=== PATIENT | female | born 1970 | race Caucasian/White ===

== ENCOUNTER 2016-05-08 16:16 | Inpatient (IN) | payer MEDICAID, OTHER ==
[2016-05-08] MEDS ORDERED: HYDROmorphone 1 MG/ML Syringe IVPUSH ONE (16:48)
[2016-05-08] MEDS ORDERED: Sodium Chloride 0.9% 10 ML Syringe FLUSH PRN (16:48)
[2016-05-08] MEDS ORDERED: Ondansetron 4 MG/2 ML SDV IVPUSH ONE (16:49)
--- NOTE | 2016-05-08 16:50 | EDM.PDOC ---
ED HPI GI/ABDOMINAL - General Chief Complaint: Abdominal Pain Stated Complaint: LOWER RT SIDE ABD PAIN Time Seen by Provider: 05/08/16 16:42 Source: Reports: Patient History Limitations: Reports: No limitations - History of Present Illness INITIAL COMMENTS - FREE TEXT/NARRATIVE: This lady complains of right lower quadrant abdominal pain which started last night. It's gotten progressively worse throughout the day. Any kind of movement hurts her. She vomited last night but hasn't vomited today. She hasn' t had anything to eat today she drank a little bit of water several hours ago. It hurts to move her left leg. She denies any dysuria she denies any chance of . - Related Data Allergies/ADRs: Allergies Allergy/AdvReac Type Severity Reaction Status Date / Time No Known Allergies Allergy Verified 05/08/16 16:40 Home Meds: Home Meds Aspirin 81 mg PO DAILY 05/08/16 [History] Ibuprofen [Advil] 600 mg PO ASDIRECTED PRN 05/08/16 [History] Past Medical History - Past Health History Medical/Surgical History: Denies Medical/Surgical History - Infectious Disease History Infectious Disease History: Reports: Chicken pox Social & Family History - Tobacco Use Smoking Status *Q: Former Smoker Tobacco Use Comment: using e cig. right now quit about a month ago - Caffeine Use Caffeine Use: Reports: Soda - Recreational Drug Use Recreational Drug Use: No ED ROS GENERAL - Review of Systems Review Of Systems: ROS reveals no pertinent complaints other than HPI. ED EXAM, GI/ABD - Physical Exam Exam: See Below Exam Limited By: No limitations General Appearance: alert, WD/WN, moderate distress Eyes: bilateral: normal appearance Ears: normal external exam Nose: normal inspection Throat/Mouth: Normal inspection Head: atraumatic Respiratory/Chest: lungs clear Cardiovascular: regular rate, rhythm, no murmur GI/Abdominal: soft, absent bowel sounds, tenderness (Severe right lower quadrant tenderness), rebound (Rebound to light percussion) Extremities: normal inspection Neurological: alert Psychiatric: normal affect Skin Exam: Warm Course - Vital Signs Last Recorded V/S: Last Vital Signs Temp 37.7 C 05/08/16 17:19 Pulse 115 H 05/08/16 16:36 Resp 16 05/08/16 16:36 BP 137/89 05/08/16 17:17 Pulse Ox 95 05/08/16 16:36 - Orders/Labs/Meds Orders: Active Orders 24 hr Category Date Time Status Abdomen Pelvis w Cont [CT] Stat Exams 05/08/16 16:49 Taken UA W/MICROSCOPIC [URIN] Urgent Lab 05/08/16 17:35 Ordered Iopamidol [Isovue-300 (61%)] Med 05/08/16 17:00 Active 100 ml IV . DIRECTED Sodium Chloride 0.9% [Normal Saline] 100 ml Med 05/08/16 17:00 Active IV ASDIRECTED Sodium Chloride 0.9% [Saline Flush] Med 05/08/16 16:48 Active 10 ml FLUSH ASDIRECTED PRN Saline Lock Insert [OM.PC] Urgent Oth 05/08/16 16:48 Ordered Medication Orders Sodium Chloride (Normal Saline) 100 mls @ 3 mls/sec IV ASDIRECTED [facility] Last Admin: 05/08/16 17:25 Dose: 3 mls/sec Iopamidol (Isovue-300 (61%)) 100 ml IV . DIRECTED [facility] Last Admin: 05/08/16 17:25 Dose: 100 ml Sodium Chloride (Saline Flush) 10 ml FLUSH ASDIRECTED PRN PRN Reason: Keep Vein Open Last Admin: 05/08/16 17:25 Dose: 10 ml Labs: Laboratory Tests 05/08/16 05/08/16 Range/Units 16:47 16:47 WBC 17.2 H (4.5-11.0) K/uL RBC 4.14 (3.30-5.50) M/uL Hgb 13.6 (12.0-15.0) g/dL Hct 39.7 (36.0-48.0) % MCV 96 (80-98) fL MCH 33 H (27-31) pg MCHC 34 (32-36) % Plt Count 227 (150-400) K/uL Neut % (Auto) 85 H (36-66) % Lymph % (Auto) 7 L (24-44) % [place]ickman % (Auto) 7 H (2-6) % Eos % (Auto) 1 L (2-4) % Baso % (Auto) 0 (0-1) % Sodium 137 L (140-148) mmol/L Potassium 3.7 (3.6-5.2) mmol/L Chloride 100 (100-108) mmol/L Carbon Dioxide 25 (21-32) mmol/L Anion Gap 15.7 H (5.0-14.0) mmol/L BUN 10 (7-18) mg/dL Creatinine 0.8 (0.6-1.0) mg/dL Est Cr Clr Drug Dosing 75.07 mL/min Estimated GFR (MDRD) > 60 (>60) Glucose 109 H (74-106) mg/dL Calcium 9.4 (8.5-10.1) mg/dL Total Bilirubin 1.1 H (0.2-1.0) mg/dL AST 13 L (15-37) U/L ALT 35 (12-78) U/L Alkaline Phosphatase 64 (46-116) U/L Total Protein 7.6 (6.4-8.2) g/dL Albumin 4.2 (3.4-5.0) g/dL Globulin 3.4 (2.3-3.5) g/dL Albumin/Globulin Ratio 1.2 (1.2-2.2) Meds: Medications Generic Name Dose Route Start Last Admin Trade Name Freq PRN Reason Stop Dose Admin Sodium Chloride 100 mls @ 3 mls/sec 05/08/16 17:00 05/08/16 17:25 Normal Saline IV 3 mls/sec ASDIRECTED [facility] Administration Iopamidol 100 ml 05/08/16 17:00 05/08/16 17:25 Isovue-300 (61%) IV 100 ml . DIRECTED [facility] Administration Sodium Chloride 10 ml 05/08/16 16:48 05/08/16 17:25 Saline Flush FLUSH 10 ml ASDIRECTED PRN Administration Keep Vein Open Discontinued Medications Generic Name Dose Route Start Last Admin Trade Name Freq PRN Reason Stop Dose Admin Hydromorphone HCl 1 mg 05/08/16 16:48 05/08/16 17:07 Dilaudid IVPUSH 05/08/16 16:49 1 mg ONETIME ONE Administration Ondansetron HCl 4 mg 05/08/16 16:49 05/08/16 17:11 Zofran IVPUSH 05/08/16 16:50 4 mg ONETIME ONE Administration - Radiology Interpretation Free Text/Narrative:: CT scan shows a lot of stranding in the right lower quadrant and a bleed I can see an enlarged appendix. The radiologist interpretation is pending - Re-Assessments/Exams Free Text/Narrative Re-Assessment/Exam: 05/08/16 17:44 I spoke with and he will be in to see the patient shortly Departure - Departure Time of Disposition: 17:45 Disposition: Admitted As Inpatient 64 Clinical Impression: Acute appendicitis Forms: ED Department Discharge - My Orders Last 24 Hours: My Active Orders 05/08/16 16:48 Sodium Chloride 0.9% [Saline Flush] 10 ml FLUSH ASDIRECTED PRN Saline Lock Insert [OM.PC] Urgent 05/08/16 16:49 Abdomen Pelvis w Cont [CT] Stat 05/08/16 17:00 Iopamidol [Isovue-300 (61%)] 100 ml IV . DIRECTED Sodium Chloride 0.9% [Normal Saline] 100 ml IV ASDIRECTED 05/08/16 17:35 UA W/MICROSCOPIC [URIN] Urgent - Assessment/Plan Last 24 Hours: My Active Orders 05/08/16 16:48 Sodium Chloride 0.9% [Saline Flush] 10 ml FLUSH ASDIRECTED PRN Saline Lock Insert [OM.PC] Urgent 05/08/16 16:49 Abdomen Pelvis w Cont [CT] Stat 05/08/16 17:00 Iopamidol [Isovue-300 (61%)] 100 ml IV . DIRECTED Sodium Chloride 0.9% [Normal Saline] 100 ml IV ASDIRECTED 05/08/16 17:35 UA W/MICROSCOPIC [URIN] Urgent
[2016-05-08] MEDS ORDERED: Iopamidol 612 MG/ML 100 ML Bottle IV SCH (17:00)
[2016-05-08] MEDS ORDERED: Sodium Chloride 0.9% 100 ML IV SCH (17:00)
[2016-05-08] MEDS ORDERED: Lidocaine 1% with EPINEPHrine 1:100,000 50 ML MDV ONE (17:59)
[2016-05-08] MEDS ORDERED: Bupivacaine 0.5% 50 ML MDV ONE (17:59)
[2016-05-08] MEDS ORDERED: HYDROmorphone 0.5 MG/0.5 ML Syringe IVPUSH ONE (18:15)
[2016-05-08] MEDS ORDERED: Lactated Ringers 1,000 ML IV ONE (18:45)
[2016-05-08] MEDS ORDERED: cefOXitin 2 GM in Sodium Chloride 0.9% 50 ML IV ONE (18:45)
[2016-05-08] MEDS ORDERED: fentaNYL 250 MCG/5 ML SDV ONE ×2 (20:10→20:39)
[2016-05-08] MEDS ORDERED: Neostigmine Methylsulfate 1 MG/ML 5 ML Syringe ONE (20:11)
[2016-05-08] MEDS ORDERED: Ondansetron 4 MG/2 ML SDV ONE (20:11)
[2016-05-08] MEDS ORDERED: Rocuronium 50 MG/5 ML Vial ONE (20:11)
[2016-05-08] MEDS ORDERED: Dexamethasone 4 MG/ML SDV ONE (20:11)
[2016-05-08] MEDS ORDERED: Propofol 200 MG/20 ML SDV ONE (20:11)
[2016-05-08] MEDS ORDERED: Lactated Ringers 1,000 ML IV SCH (20:45)
[2016-05-08] MEDS ORDERED: Ondansetron 4 MG/2 ML SDV IVPUSH PRN (21:45)
[2016-05-08] MEDS ORDERED: D5 1/2 NS w/ 20 mEq/L KCl 1,000 ML IV SCH (22:00)
[2016-05-08] MEDS ORDERED: Naloxone 0.4 MG/ML SDV IV PRN (22:16)
[2016-05-08] MEDS: HYDROmorphone/Normal Saline 15 MG/30 ML PCA IV PRN (22:29)
[2016-05-09] MEDS ORDERED: cefOXitin 2 GM Vial ONE (04:09)
[2016-05-09] MEDS ORDERED: Sodium Chloride 0.9% 50 ML ONE (04:10)
[2016-05-09] MEDS: cefOXitin 2 GM in Sodium Chloride 0.9% 50 ML IV SCH ×2 (04:20→05:35)
[2016-05-09] MEDS ORDERED: D5 1/2 NS w/ 20 mEq/L KCl 1,000 ML IV SCH (06:30)
--- NOTE | 2016-05-09 06:33 | PCM.SURGPN ---
- General Info Date of Service: 05/09/16 Date of Surgery/Procedure: 05/08/16 POD#: 1 Post-Op Diagnosis: Appendicitis Admission Diagnosis/Problem: Appendicitis Functional Status: Reports: pain controlled, ambulating, urinating (Not is record, but she has voided several times last night. ) - Review of Systems General: Reports: No Symptoms, Other (She feels much better than she did prior to surgery. ) HEENT: Reports: sore throat (From endotracheal tube. ) Pulmonary: Reports: no symptoms Cardiovascular: Reports: No Symptoms Gastrointestinal: Reports: No symptoms, Other (She is not hungry, but is thirsty. ). Denies: Vomiting Genitourinary: Reports: no symptoms Musculoskeletal: Reports: no symptoms Skin: Reports: no symptoms Neurological: Reports: No Symptoms Psychiatric: Reports: no symptoms - Patient Data Vitals - most recent: Last Vital Signs Temp 99.8 F 05/09/16 02:54 Pulse 102 H 05/09/16 02:54 Resp 16 05/09/16 02:54 BP 108/74 05/09/16 02:54 Pulse Ox 92 L 05/09/16 02:54 Weight - most recent: 133 lb I&O - last 24 hours: Intake & Output 05/08/16 05/08/16 05/09/16 14:59 22:59 06:59 Intake Total 876 Balance 876 Lab Results last 24 hrs: Laboratory Results - last 24 hr 05/09/16 05/09/16 Range/Units 05:00 05:00 WBC 17.2 H (4.5-11.0) K/uL RBC 3.75 (3.30-5.50) M/uL Hgb 11.9 L (12.0-15.0) g/dL Hct 37.1 (36.0-48.0) % MCV 99 H (80-98) fL MCH 32 H (27-31) pg MCHC 32 (32-36) % Plt Count 229 (150-400) K/uL Sodium 139 L (140-148) mmol/L Potassium 4.6 (3.6-5.2) mmol/L Chloride 104 (100-108) mmol/L Carbon Dioxide 28 (21-32) mmol/L Anion Gap 11.6 (5.0-14.0) mmol/L BUN 6 L (7-18) mg/dL Creatinine 1.2 H (0.6-1.0) mg/dL Est Cr Clr Drug Dosing 50.05 mL/min Estimated GFR (MDRD) 48 L (>60) Glucose 147 H (74-106) mg/dL Calcium 8.8 (8.5-10.1) mg/dL [place] Results last 24 hrs: Microbiology 05/08/16 22:19 Gram Stain - Final Peritoneal Fluid Med Orders - Current: Current Medications Hydromorphone HCl (Dilaudid [employer]ump Truck Driver [address] Mg In Ns 30 Ml) 0 mg IV ASDIRECTED PRN; Protocol PRN Reason: 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 TENDER 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 Last Admin: 05/08/16 22:29 Dose: 15 mg Sodium Chloride (Normal Saline) 100 mls @ 3 mls/sec IV ASDIRECTED [facility] Last Admin: 05/08/16 17:25 Dose: 3 mls/sec Lactated Ringer's (Ringers, Lactated) 1,000 mls @ 100 mls/hr IV ASDIRECTED [facility] Potassium Chloride/Dextrose/Sod Cl (D5 1/2 Ns W/ 20 Meq/L Kcl) 1,000 mls @ 125 mls/hr IV ASDIRECTED [facility] Last Admin: 05/08/16 22:33 Dose: 125 mls/hr Cefoxitin Sodium 2 gm/ Sodium (Chloride) 50 mls @ 100 mls/hr IV Q8HR [facility] Stop: 05/09/16 06:29 Last Admin: 05/09/16 05:35 Dose: Not Given Iopamidol (Isovue-300 (61%)) 100 ml IV . DIRECTED [facility] Last Admin: 05/08/16 17:25 Dose: 100 ml Naloxone HCl (Narcan) 0.1 mg IV ASDIRECTED PRN PRN Reason: decreased respiratory rate Ondansetron HCl (Zofran) 4 mg IVPUSH Q6H PRN PRN Reason: Nausea/Vomiting Sodium Chloride (Saline Flush) 10 ml FLUSH ASDIRECTED PRN PRN Reason: Keep Vein Open Last Admin: 05/08/16 17:25 Dose: 10 ml Discontinued Medications Bupivacaine HCl (Marcaine 0.5%) Confirm Administered Dose 50 ml .ROUTE .STK-MED ONE Stop: 05/08/16 18:00 Last Admin: 05/08/16 20:46 Dose: 10 ml Cefoxitin Sodium (Mefoxin) Confirm Administered Dose 2 gm .ROUTE .STK-MED ONE Stop: 05/09/16 04:10 Last Admin: 05/09/16 04:19 Dose: 2 gm Dexamethasone (Dexamethasone) Confirm Administered Dose 4 mg .ROUTE .STK-MED ONE Stop: 05/08/16 20:12 Fentanyl (Sublimaze) Confirm Administered Dose 250 mcg .ROUTE .STK-MED ONE Stop: 05/08/16 20:11 Fentanyl (Sublimaze) Confirm Administered Dose 250 mcg .ROUTE .STK-MED ONE Stop: 05/08/16 20:40 Glycopyrrolate () Confirm Administered Dose 1 mg .ROUTE .STK-MED ONE Stop: 05/08/16 20:12 Hydromorphone HCl (Dilaudid) 1 mg IVPUSH ONETIME ONE Stop: 05/08/16 16:49 Last Admin: 05/08/16 17:07 Dose: 1 mg Hydromorphone HCl (Dilaudid) 0.5 mg IVPUSH ONETIME ONE Stop: 05/08/16 18:16 Last Admin: 05/08/16 18:28 Dose: 0.5 mg Cefoxitin Sodium 2 gm/ Sodium (Chloride) 50 mls @ 100 mls/hr IV ONCALL ONE Stop: 05/08/16 19:14 Last Admin: 05/08/16 19:02 Dose: 100 mls/hr Lactated Ringer's (Ringers, Lactated) 1,000 mls @ 500 mls/hr IV ONETIME ONE Stop: 05/08/16 20:44 Last Admin: 05/08/16 18:54 Dose: 500 mls/hr Sodium Chloride (Normal Saline) Confirm Administered Dose 50 mls @ as directed .ROUTE .STK-MED ONE Stop: 05/09/16 04:11 Last Admin: 05/09/16 04:19 Dose: 50 ml Lidocaine/Epinephrine (Xylocaine 1% With Epinephrine 1:100,000) Confirm Administered Dose 50 ml .ROUTE .STK-MED ONE Stop: 05/08/16 18:00 Last Admin: 05/08/16 20:47 Dose: 10 ml Neostigmine Methylsulfate (Neostigmine) Confirm Administered Dose 5 mg .ROUTE .STK-MED ONE Stop: 05/08/16 20:12 Ondansetron HCl (Zofran) 4 mg IVPUSH ONETIME ONE Stop: 05/08/16 16:50 Last Admin: 05/08/16 17:11 Dose: 4 mg Ondansetron HCl (Zofran) Confirm Administered Dose 4 mg .ROUTE .STK-MED ONE Stop: 05/08/16 20:12 Propofol (Diprivan 20 Ml) Confirm Administered Dose 200 mg .ROUTE .STK-MED ONE Stop: 05/08/16 20:12 Rocuronium [place] (Zemuron) Confirm Administered Dose 50 mg .ROUTE .STK-MED ONE Stop: 05/08/16 20:12 - Exam Wound/Incisions: healing well, no drainage Quality Assessment: supplemental oxygen General: alert, oriented Lungs: Clear to auscultation, Normal respiratory effort Cardiovascular: Regular Rate, Regular Rhythm Abdomen: bowel sounds present, soft, no tenderness, no distension Extremities: no edema Skin: warm, dry, intact Neurological: no new focal deficit Psy/Mental Status: alert, normal affect, normal mood - Problem List & Annotations (1) Acute appendicitis SNOMED Code(s): 93854966 Code(s): K35.80 - UNSPECIFIED ACUTE APPENDICITIS Status: Acute Current Visit: Yes - Problem List Review Problem List Initiated/Reviewed/Updated: Yes - My Orders Last 24 Hours: Active Orders 24 hr Category Date Time Status Advance Diet Instructions [DIET] Diet 05/09/16 Breakfast Ordered D5 1/2 NS w/ 20 mEq/L KCl 1,000 ml Med 05/08/16 22:00 Active IV ASDIRECTED D5 1/2 NS w/ 20 mEq/L KCl 1,000 ml Med 05/09/16 06:30 Ordered IV ASDIRECTED HYDROmorphone/Normal Saline [Dilaudid CLOTH 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 TENDER 15 MG in NS Med 05/08/16 22:16 Active 30 ML] 0 mg IV ASDIRECTED PRN Naloxone [Narcan] Med 05/08/16 22:16 Active 0.1 mg IV ASDIRECTED PRN Medication Orders Hydromorphone HCl (Dilaudid Dump Truck Driver [address] Mg In Ns 30 Ml) 0 mg IV ASDIRECTED PRN; Protocol PRN Reason: CLOTH 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 TENDER PAIN CONTROL Last Admin: 05/08/16 22:29 Dose: 15 mg Sodium Chloride (Normal Saline) 100 mls @ 3 mls/sec IV ASDIRECTED [facility] Last Admin: 05/08/16 17:25 Dose: 3 mls/sec Lactated Ringer's (Ringers, Lactated) 1,000 mls @ 100 mls/hr IV ASDIRECTED [facility] Potassium Chloride/Dextrose/Sod Cl (D5 1/2 Ns W/ 20 Meq/L Kcl) 1,000 mls @ 125 mls/hr IV ASDIRECTED [facility] Last Admin: 05/08/16 22:33 Dose: 125 mls/hr Cefoxitin Sodium 2 gm/ Sodium (Chloride) 50 mls @ 100 mls/hr IV Q8HR [facility] Stop: 05/09/16 06:29 Last Admin: 05/09/16 05:35 Dose: Not Given Admin: 05/09/16 04:20 Dose: Not Given Iopamidol (Isovue-300 (61%)) 100 ml IV . DIRECTED [facility] Last Admin: 05/08/16 17:25 Dose: 100 ml Naloxone HCl (Narcan) 0.1 mg IV ASDIRECTED PRN PRN Reason: decreased respiratory rate Ondansetron HCl (Zofran) 4 mg IVPUSH Q6H PRN PRN Reason: Nausea/Vomiting Sodium Chloride (Saline Flush) 10 ml FLUSH ASDIRECTED PRN PRN Reason: Keep Vein Open Last Admin: 05/08/16 17:25 Dose: 10 ml - Assessment Assessment (Free Text/Narrative):: She appears well. Fever has resolved. WBC still up. - Plan Plan (Free Text/Narrative):: Feed. Decrease fluids.
--- NOTE | 2016-05-09 07:22 | OR ---
DATE OF PROCEDURE: 05/08/2016 PREOPERATIVE DIAGNOSIS: Acute appendicitis. POSTOPERATIVE DIAGNOSIS: Acute appendicitis, possible micro perforation, possible gangrenous. PROCEDURE: Laparoscopic appendectomy. ANESTHESIA: General endotracheal. INDICATION: This 45-year-old white female noted onset of abdominal bloating yesterday. This got worse and then developed into diffuse abdominal pain which ultimately moved to her right lower quadrant. The pain was followed by nausea and vomiting. She finally came in this afternoon to the emergency room where she was found to be tender in the right lower quadrant. She had a fever over 101 and a WBC of 17,200. A CAT scan of abdomen and pelvis was consistent with acute appendicitis. No obvious evidence of perforation. She was taken to the operating room for a laparoscopic appendectomy. I counseled her for surgery including risks and alternatives, and she gave her informed consent to proceed. DESCRIPTION OF PROCEDURE: After adequate general endotracheal anesthesia was obtained, a Dubose catheter was placed. Her abdomen was prepped and draped in the usual sterile fashion. The leg compression stockings were in place and used during the entire procedure. Time-out was held. An infraumbilical semicircular incision was made. Under direct vision, a 12-mm port was introduced into the abdomen using the Optiview technique. The camera was introduced into the abdomen. No evidence of intraabdominal injury was seen. Under direct vision, 12 mm ports were placed in the right upper and left lower quadrants. There was some murky fluid in the abdomen which was aspirated free and sent for Gram stain and culture. The appendix was identified and was noted to be fused to the posterior peritoneal wall. We sharply freed this up. At one point, we entered the appendiceal artery which was controlled with clips. We were able to mobilize the appendix up and divide it right at the cecum with a KATYA blue load. The mesoappendix was then divided with the endoscopic KATYA using a white load. The appendix was placed in a sample retrieval bag and elevated up through the anterior abdominal wall via the right upper quadrant port site. The mesoappendix appeared nonviable, so this was removed using another white load to excise this. This was also sent to the laboratory. The right lower quadrant was irrigated and suctioned dry, all looked well. The fascia closure device was used to place 0 Vicryl stitches in the right upper and left lower quadrant fascial defects. The stitches were not tied down until they were both placed and they were then tied down. Next, the infraumbilical port was removed. An interrupted stitch of 0 Vicryl was used to close this fascial defect. Before tying this stitch down, we evacuated as much CO2 as we could from the abdomen. The incisions were then anesthetized with lidocaine with epinephrine in a 50:50 mix with 0.5% Marcaine. All skin incisions were then closed with subcuticular stitches of 4-0 Vicryl. Dermabond was applied and an abdominal binder. The anesthesia was reversed. She was extubated and brought to recovery room in good condition. Leon Marc MD /[id number] MTDD
[2016-05-09 07:40] VITALS: BP 109/71
[2016-05-09] MEDS: HYDROmorphone/Normal Saline 15 MG/30 ML PCA IV PRN (09:53)
[2016-05-09] MEDS ORDERED: cefOXitin 2 GM in Sodium Chloride 0.9% 50 ML IV SCH (12:00)
[2016-05-09] MEDS ORDERED: Acetaminophen/HYDROcodone 325-5 MG Tab PO PRN (12:31)
--- NOTE | 2016-05-09 19:30 | PCM.DCSUM1 ---
Discharge Summary - Hospital Course Free Text/Narrative:: This 45 year old white female presented to the ER yesterday complaining of a day of progressive abdominal symptoms. She began with bloating followed by diffuse abdominal pain which moved to her right lower quadrant followed by nausea and vomiting. She had a temperature of 101.6, was tender in the right lower quadrant with peritoneal irritation signs, and an elevated WBC of 17,200. A CT of her abdomen and pelvis showed acute appendicitis. She received Mefoxin 2 grams IV and was taken to the OR for a laparoscopic appendectomy. There was no obvious perforation, but areas of the appendix appeared necrotic. Her fever rapidly resolved and she was able to eat today. She wanted to go home. Gram stain of peritoneal fluid showed no bacteria. Urinalysis was consistent with a UTI, so she was given Keflex 500 BID for three days. HPI Initial Comments: See above narrative. Brief History: See above narrative. - Discharge Data Discharge Date: 05/09/16 Discharge Disposition: Home, Self-Care 01 Condition: Good - Discharge Diagnosis/Problem(s) (1) Acute appendicitis SNOMED Code(s): 69570068 ICD Code: K35.80 - UNSPECIFIED ACUTE APPENDICITIS Status: Acute - Patient Summary/Data Operative Procedure(s) Performed: Laparoscopic appendectomy Hospital Course: See above narrative. - Patient Instructions Diet: Usual Diet as Tolerated Activity, Other: Avoid activity that causes discomfort. Showering/Bathing: May Shower Notify Provider of: Fever, Increased Pain, Swelling and Redness, Drainage, Nausea and/or Vomiting - Discharge Plan Home Medications: Home Meds Aspirin 81 mg PO DAILY 05/08/16 [History] Ibuprofen [Advil] 600 mg PO ASDIRECTED PRN 05/08/16 [History] Referrals: PCP,None [Primary Care Provider] - Leon Marc MD [Physician] - (Next week with me in [facility]. ) - Discharge Summary/Plan Comment DC Time >30 min.: Yes Discharge Summary/Plan Comment: See above narrative. - Patient Data Vitals - Most Recent: Last Vital Signs Temp 98.8 F 05/09/16 12:27 Pulse 78 05/09/16 07:39 Resp 16 05/09/16 07:39 BP 109/71 05/09/16 07:39 Pulse Ox 100 05/09/16 07:39 Weight - Most Recent: 133 lb 0.007 oz I&O - Last 24 hours: Intake & Output 05/09/16 05/09/16 05/09/16 06:59 14:59 22:59 Intake Total 876 1300 Output Total 700 Balance 176 1300 Lab Results - Last 24 hrs: Laboratory Results - last 24 hr 05/09/16 05/09/16 Range/Units 05:00 05:00 WBC 17.2 H (4.5-11.0) K/uL RBC 3.75 (3.30-5.50) M/uL Hgb 11.9 L (12.0-15.0) g/dL Hct 37.1 (36.0-48.0) % MCV 99 H (80-98) fL MCH 32 H (27-31) pg MCHC 32 (32-36) % Plt Count 229 (150-400) K/uL Sodium 139 L (140-148) mmol/L Potassium 4.6 (3.6-5.2) mmol/L Chloride 104 (100-108) mmol/L Carbon Dioxide 28 (21-32) mmol/L Anion Gap 11.6 (5.0-14.0) mmol/L BUN 6 L (7-18) mg/dL Creatinine 1.2 H (0.6-1.0) mg/dL Est Cr Clr Drug Dosing 50.05 mL/min Estimated GFR (MDRD) 48 L (>60) Glucose 147 H (74-106) mg/dL Calcium 8.8 (8.5-10.1) mg/dL [place] Results - Last 24 hrs: Microbiology 05/08/16 22:19 Gram Stain - Final Peritoneal Fluid Med Orders - Current: Current Medications Discontinued Medications Acetaminophen/Hydrocodone Bitart ([place]pex 325-5 Mg) 1 - 2 tab PO Q4H PRN PRN Reason: Pain Last Admin: 05/09/16 12:48 Dose: 2 tab Bupivacaine HCl (Marcaine 0.5%) Confirm Administered Dose 50 ml .ROUTE .STK-MED ONE Stop: 05/08/16 18:00 Last Admin: 05/08/16 20:46 Dose: 10 ml Cefoxitin Sodium (Mefoxin) Confirm Administered Dose 2 gm .ROUTE .STK-MED ONE Stop: 05/09/16 04:10 Last Admin: 05/09/16 04:19 Dose: 2 gm Dexamethasone (Dexamethasone) Confirm Administered Dose 4 mg .ROUTE .STK-MED ONE Stop: 05/08/16 20:12 Fentanyl (Sublimaze) Confirm Administered Dose 250 mcg .ROUTE .STK-MED ONE Stop: 05/08/16 20:11 Fentanyl (Sublimaze) Confirm Administered Dose 250 mcg .ROUTE .STK-MED ONE Stop: 05/08/16 20:40 Glycopyrrolate () Confirm Administered Dose 1 mg .ROUTE .STK-MED ONE Stop: 05/08/16 20:12 Hydromorphone HCl (Dilaudid) 1 mg IVPUSH ONETIME ONE Stop: 05/08/16 16:49 Last Admin: 05/08/16 17:07 Dose: 1 mg Hydromorphone HCl (Dilaudid) 0.5 mg IVPUSH ONETIME ONE Stop: 05/08/16 18:16 Last Admin: 05/08/16 18:28 Dose: 0.5 mg Hydromorphone HCl (Dilaudid Production Line Mechanic 15 Mg In Ns 30 Ml) 0 mg IV ASDIRECTED PRN; Protocol PRN Reason: RETINAL ANGIOGRAPHER PAIN CONTROL Last Admin: 05/09/16 09:53 Dose: 15 mg Sodium Chloride (Normal Saline) 100 mls @ 3 mls/sec IV ASDIRECTED [facility] Last Admin: 05/08/16 17:25 Dose: 3 mls/sec Cefoxitin Sodium 2 gm/ Sodium (Chloride) 50 mls @ 100 mls/hr IV ONCALL ONE Stop: 05/08/16 19:14 Last Admin: 05/08/16 19:02 Dose: 100 mls/hr Lactated Ringer's (Ringers, Lactated) 1,000 mls @ 500 mls/hr IV ONETIME ONE Stop: 05/08/16 20:44 Last Admin: 05/08/16 18:54 Dose: 500 mls/hr Lactated Ringer's (Ringers, Lactated) 1,000 mls @ 100 mls/hr IV ASDIRECTED [facility] Potassium Chloride/Dextrose/Sod Cl (D5 1/2 Ns W/ 20 Meq/L Kcl) 1,000 mls @ 125 mls/hr IV ASDIRECTED [facility] Last Admin: 05/08/16 22:33 Dose: 125 mls/hr Cefoxitin Sodium 2 gm/ Sodium (Chloride) 50 mls @ 100 mls/hr IV Q8HR [facility] Stop: 05/09/16 06:29 Last Admin: 05/09/16 05:35 Dose: Not Given Sodium Chloride (Normal Saline) Confirm Administered Dose 50 mls @ as directed .ROUTE .STK-MED ONE Stop: 05/09/16 04:11 Last Admin: 05/09/16 04:19 Dose: 50 ml Potassium Chloride/Dextrose/Sod Cl (D5 1/2 Ns W/ 20 Meq/L Kcl) 1,000 mls @ 50 mls/hr IV ASDIRECTED [facility] Last Admin: 05/09/16 09:55 Dose: 50 mls/hr Cefoxitin Sodium 2 gm/ Sodium (Chloride) 50 mls @ 100 mls/hr IV Q8H [facility] Stop: 05/09/16 12:29 Last Admin: 05/09/16 12:08 Dose: 100 mls/hr Iopamidol (Isovue-300 (61%)) 100 ml IV . DIRECTED [facility] Last Admin: 05/08/16 17:25 Dose: 100 ml Lidocaine/Epinephrine (Xylocaine 1% With Epinephrine 1:100,000) Confirm Administered Dose 50 ml .ROUTE .STK-MED ONE Stop: 05/08/16 18:00 Last Admin: 05/08/16 20:47 Dose: 10 ml Naloxone HCl (Narcan) 0.1 mg IV ASDIRECTED PRN PRN Reason: decreased respiratory rate Neostigmine Methylsulfate (Neostigmine) Confirm Administered Dose 5 mg .ROUTE .STK-MED ONE Stop: 05/08/16 20:12 Ondansetron HCl (Zofran) 4 mg IVPUSH ONETIME ONE Stop: 05/08/16 16:50 Last Admin: 05/08/16 17:11 Dose: 4 mg Ondansetron HCl (Zofran) Confirm Administered Dose 4 mg .ROUTE .STK-MED ONE Stop: 05/08/16 20:12 Ondansetron HCl (Zofran) 4 mg IVPUSH Q6H PRN PRN Reason: Nausea/Vomiting Propofol (Diprivan 20 Ml) Confirm Administered Dose 200 mg .ROUTE .STK-MED ONE Stop: 05/08/16 20:12 Rocuronium [place] (Zemuron) Confirm Administered Dose 50 mg .ROUTE .STK-MED ONE Stop: 05/08/16 20:12 Sodium Chloride (Saline Flush) 10 ml FLUSH ASDIRECTED PRN PRN Reason: Keep Vein Open Last Admin: 05/08/16 17:25 Dose: 10 ml *Q Meaningful Use (DIS) - VTE *Q VTE Criteria *Q: - Stroke *Q Stroke Criteria *Q: - AMI *Q AMI Criteria *Q:
== END 2016-05-09 14:35 | disposition home or self-care (01) | DRG 342 ==
LOC: JP.ED 16:16 → JP.SDS 18:09 → JP.MS 21:45
PROVIDERS: ADMIT Surgery; ATTEND Surgery
PROC: 0DTJ4ZZ Resection of Appendix, Percutaneous Endoscopic Approach (ICD-10-PCS; principal; 2016-05-08)
DX: K35.80 Unspecified acute appendicitis (principal); N39.0 Urinary tract infection, site not specified; Z87.891 Personal history of nicotine dependence
CPT/HCPCS: 36415; 74177; 80048; 80053; 81001; 85025; 85027; 87070; 87075; 87077; 87186; 87205; 88304; 94762; 96361; 96374; 96375; 96376; 99284; 99285-25; A9270-GY; J0694; J1100; J1170; J2405; J2704; J3010; J3480; J7030; J7050; J7120; Q9967

== ENCOUNTER 2018-10-23 08:08 | Emergency (ER) | payer OTHER ==
[2018-10-23 09:16] VITALS: BP 195/112
--- NOTE | 2018-10-23 09:19 | EDM.PDOC ---
ED HPI GENERAL MEDICAL PROBLEM - General Chief Complaint: General Stated Complaint: DIZZINESS AND EYE WAS WONDERING Time Seen by Provider: 10/23/18 08:50 Source of Information: Reports: Patient, Family, RN Notes Reviewed History Limitations: Reports: No Limitations - History of Present Illness INITIAL COMMENTS - FREE TEXT/NARRATIVE: 47-year-old female presents to the emergency department today with complaint complaint of strokelike symptoms earlier today approximately 7:15 she had just finished smoking a cigarette when she had an event of left eye wandering and left-sided weakness. She did not fall to the ground did not injure herself the symptoms lasted less than a minute with complete resolution. Symptoms were observed by her who subsequently brought her to the emergency department for further evaluation. She has been asymptomatic does admit to having high blood pressure which she has treated in the past but is currently not on medications at this time has no primary care. She denies any past medical history of strokelike symptoms does admit to not going to the doctor - Related Data Allergies Allergy/AdvReac Type Severity Reaction Status Date / Time Sulfa (Sulfonamide Allergy Cannot Verified 10/23/18 08:34 Antibiotics) Remember Home Meds: Home Meds Aspirin 81 mg PO DAILY 05/08/16 [History] Ibuprofen [Advil] 600 mg PO ASDIRECTED PRN 05/08/16 [History] Past Medical History Cardiovascular History: Reports: Hypertension - Infectious Disease History Infectious Disease History: Reports: Chicken Pox - Past Surgical History GI Surgical History: Reports: Appendectomy Social & Family History - Family History Family Medical History: Noncontributory - Tobacco Use Smoking Status *Q: Current Some Day Smoker Years of Tobacco use: 30 Packs/Tins Daily: 0.5 - Caffeine Use Caffeine Use: Reports: Energy Drinks, Soda - Recreational Drug Use Recreational Drug Type: Reports: Marijuana/Hashish ED ROS GENERAL - Review of Systems Review Of Systems: See Below Constitutional: Reports: No Symptoms HEENT: Reports: No Symptoms Respiratory: Reports: No Symptoms Cardiovascular: Reports: No Symptoms GI/Abdominal: Reports: No Symptoms : Reports: No Symptoms Musculoskeletal: Reports: No Symptoms Skin: Reports: No Symptoms Neurological: Reports: Weakness (Left sided) ED EXAM, GENERAL - Physical Exam Exam: See Below Free Text/Narrative:: Cranial nerves II test with pupillary light reflex 4 mm to 2 mm bilaterally, CN III test pupillary constriction, lid elevation and eye abduction bilaterally, CN IV downward movement of eyes bilaterally, CN V good jaw movement, CN lateral deviation of the eyes bilaterally to finger movement, CN VII symmetrical smile shows teeth without difficulty, CN VIII pass finger rub to ears bilaterally, CN IX adequate voice and tone, CN X adequate voice and tone no difficulty swallowing, CN XI can shrug shoulders without difficulty, CN XII can stick tongue out without difficulty, cranial nerves II to XII intact as tested, power is 5 out 5 in upper and lower extremities, patellar reflex, biceps reflex +2 can do finger to nose without difficulty, no dysdiadochokinesis , no difficulty with rapid alternating movements can do [id number] without difficulty, Romberg is negative, has adequate gait can do heel to toe, can toe walk and heel walk no cerebellar dysfunction , no focal neurologic deficit Exam Limited By: No Limitations General Appearance: Alert, WD/WN, No Apparent Distress Eye Exam: Bilateral Eye: EOMI, Normal Inspection, PERRL Respiratory/Chest: No Respiratory Distress, Lungs Clear, Normal Breath Sounds, No Accessory Muscle Use, Chest Non-Tender Cardiovascular: Regular Rate, Rhythm, No Murmur Course - Vital Signs Last Recorded V/S: Last Vital Signs Temp 96.6 F 10/23/18 08:33 Pulse 88 10/23/18 08:33 Resp 16 10/23/18 08:33 BP 192/109 H 10/23/18 08:33 Pulse Ox 99 10/23/18 08:33 Departure - Departure Time of Disposition: 09:18 Disposition: Home, Self-Care 01 Condition: Fair Clinical Impression: Stroke-like symptoms - Discharge Information Referrals: PCP,None [Primary Care Provider] - Additional Instructions: Please establish with a primary care for further evaluation of blood pressure and stroke like symptoms recommend continuing your daily aspirin, call or return to the emergency department with worsening of symptoms - Assessment/Plan Plan: Assessment Acuity = acute Site and laterality = strokelike symptoms uncontrolled hypertension Etiology = unclear etiology Manifestations = none Location of injury = Home Lab values = none Plan I did discuss several options with her including evaluation for stroke like symptoms, her ABCD squared score is low at 3%. I also discussed options of treating her blood pressure of which she declined. I offered to set up an appointment with primary care for further evaluation as an outpatient. She also declined. She wanted to set up an appointment on her own with her insurance. This note was dictated using [employer] voice recognition software please call with any questions on syntax or grammar.
== END 2018-10-23 09:28 | disposition home or self-care (01) ==
LOC: JP.ED 08:08
DX: M62.81 Muscle weakness (generalized) (principal); I10 Essential (primary) hypertension; F17.210 Nicotine dependence, cigarettes, uncomplicated; Z88.2 Allergy status to sulfonamides; Z79.82 Long term (current) use of aspirin; Z79.899 Other long term (current) drug therapy
CPT/HCPCS: 99284